=== PATIENT | male | born 1950 | race Caucasian/White ===

== ENCOUNTER 2017-11-21 08:22 | Day surgery (SDC) | payer OTHER ==
[2017-11-08 10:55] VITALS: BMI 27.0
--- NOTE | 2017-11-08 11:31 | PAT Medication Instructions ---
Service Date Nov 08, 2017. Current Home Medication List Aspirin (Aspirin Ec), 81 MG PO QPM Ketoconazole (Topical) (Ketoconazole), 1 APPLN TOP QD PRN for skin irritation Lisinopril (Zestril), 20 MG PO QPM Nortriptyline (Pamelor), 25 MG PO QPM Tamsulosin Hcl (Flomax), 0.4 MG PO QPM Medication Instructions For Your Scheduled Surgery - Hold the following medications 10 days prior to surgery (per your surgeon's instructions): Aspirin (Aspirin Ec), 81 MG PO QPM - Hold the following medications 24 hours prior to surgery: Ketoconazole (Topical) (Ketoconazole), 1 APPLN TOP QD PRN for skin irritation Lisinopril (Zestril), 20 MG PO QPM - Take the following medications as scheduled the night before surgery: Nortriptyline (Pamelor), 25 MG PO QPM Tamsulosin Hcl (Flomax), 0.4 MG PO QPM NOTHING TO EAT OR DRINK AFTER MIDNIGHT* If you have any questions please call us at [phone] or [phone] or [phone]
--- NOTE | 2017-11-08 12:16 | DIAGNOSTIC IMAGING REPORT ---
CHEST 2 VIEWS ROUTINE HISTORY: Preop. COMPARISON: None. FINDINGS: The lungs are clear. Pectus excavatum deformity. Mild emphysema. No pleural effusions. No pneumothorax. The heart is normal in size. IMPRESSION: No acute process. Electronically signed by: Romaine Forte M.D. 11/08/2017 12:15 PM Dictated Date/Time: 11/08/2017 12:13 PM
[2017-11-08 12:43] LABS: BASO % 0.6 %; BASO ABS # 0.08 K/uL (0-0.2); EOS % 2.8 %; EOS ABS # 0.37 K/uL (0-0.5); HEMATOCRIT 47.4 % (42-52); HEMOGLOBIN 16.6 g/dL (14.0-18.0); IG# 0.17 K/uL (0.00-0.02); LYMPH % 8.2 %; LYMPH ABS # 1.08 K/uL (1.2-3.4); MEAN CELL VOLUME 88.1 fL (80-100); MEAN CORPUSCULAR HEMOGLOBIN 30.9 pg (25-34); MEAN PLATELET VOLUME 10.3 fL (7.4-10.4); MONO % 9.3 %; MONO ABS # 1.23 K/uL (0.11-0.59); NEUT % 77.8 %; NEUT ABS # 10.29 K/uL (1.4-6.5); PLATELET COUNT 307 K/uL (130-400); RED CELL DISTRIBUTION WIDTH SD 47.9 fL (36.4-46.3); WHITE BLOOD COUNT 13.22 K/uL (4.8-10.8)
[2017-11-08 12:51] LABS: CALCIUM 9.5 mg/dl (8.5-10.1); CREATININE 1.16 mg/dl (0.60-1.40); POTASSIUM 4.6 mmol/L (3.5-5.1)
[~2017-11-21] VITALS: Ht 188 cm; Wt 96.7 kg
[~2017-11-21 08:22] MED LIST: ALPR0.5T PO; ASPI81TA28 PO; CEPH-571 PO; CIPROFLOXACIN / D5W 400 MG IV SCH; KETO2SHA TOP; LACTATED RINGER'S 1000ML 1,000 ML IV SCH; LISI-725 PO; NORT25CA PO; PHEN-775 PO; TAMS0.4C38 PO
[2017-11-21 08:58] VITALS: BP_SYST 95; PULSE 106; TEMP 36.6; O2SAT 95; Ht 188 cm; Wt 96.7 kg
[2017-11-21] MEDS ORDERED: FENTANYL CITRATE INJ 50 MCG/1 ML 2 ML VIAL IV PRN (09:15)
[2017-11-21] MEDS ORDERED: ONDANSETRON INJ 2 MG/ML 2 ML VIAL IV PRN (09:15)
[2017-11-21] MEDS ORDERED: ATROPINE SULFATE 0.1 MG/ML 5ML SYR IV PRN (09:15)
[2017-11-21] MEDS ORDERED: EpHEDrine SULFATE INJ 50 MG/ML AMP IV PRN (09:15)
--- NOTE | 2017-11-21 10:37 | History & Physical Bridge Note ---
H&P Re-Evaluation Bridge Note: I have examined the patient, reviewed the History & Physical and in the interval since the performance of the History & Physical I have noted the following changes of clinical significance: No changes noted
[2017-11-21] MEDS ORDERED: PROPOFOL IV EMULSION 10 MG/ML 20 ML VIAL IV ONE ×2 (10:52→11:14)
[2017-11-21] MEDS ORDERED: FENTANYL CITRATE INJ 50 MCG/1 ML 2 ML VIAL ONE (10:52)
[2017-11-21] MEDS ORDERED: Cysto-Conray II 17.2% 250ML BOTTLE ONE (10:52)
[2017-11-21] MEDS ORDERED: MIDAZOLAM HCL 1 MG/ML 2ML VIAL ONE ×2 (10:52→11:04)
[2017-11-21] MEDS ORDERED: CIPR1TAB10 PO (11:09)
--- NOTE | 2017-11-21 11:11 | Discharge Instructions ---
Discharge Instructions Date of Service Nov 21, 2017. Admission Reason for Admission: Benign Prostatic Hyperplasia with Urinary Obstruct Discharge Discharge Diagnosis / Problem: Gross Hematuria Discharge Goals Goal(s): Decrease discomfort, Improve function Activity Recommendations Activity Limitations: resume your previous activity Lifting Limitations: gradually increase as tolerated Exercise/Sports Limitations: gradually increase as tolerated . Instructions / Follow-Up Instructions / Follow-Up May have blood in urine. May have issues with burning or pelvic pain. Call if fevers or chills. Current Hospital Diet Patient's current hospital diet: Discharge Diet Recommended Diet: Regular Diet Procedures Procedures Performed: Cystoscopy and bilateral Retrograde. Pending Studies Studies pending at discharge: no Medical Emergencies . Who to Call and When: Medical Emergencies: If at any time you feel your situation is an emergency, please call 911 immediately. . Non-Emergent Contact Non-Emergency issues call your: Primary Care Provider, Urologist Call Non-Emergent contact if: you have a fever, temperature is above 101, temperature is above 101.5, your pain is not controlled, your pain is worsening . . "Provider Documentation" section prepared by Taye Mitchell. .
[2017-11-21] MEDS ORDERED: OXYCODONE/ACETAMINOPHEN 7.5-325 TAB PO PRN (11:15)
--- NOTE | 2017-11-21 11:31 | [facility] Operative Report ---
Operative Report Operative Date Nov 21, 2017. Pre-Operative Diagnosis Gross Hematuria. Post-Operative Diagnosis Same Procedure(s) Performed Cystoscopy with Retrograde Pyelogram, bilateral Surgeon Mitchell Estimated Blood Loss Minimal Findings Bilateral ureters clear. Large prostate with tiny bladder stones Specimens None Drains None Anesthesia Type General Complication(s) none Disposition Recovery Room / PACU Indications Gross hematuria with renal issues. Here for cystoscopy and bilateral retrograde pyelogram. Description of Procedure Patient was consented and brought back to the operating room. Patient was placed under anesthesia in the supine position and moved to the dorsal lithotomy position. Patient was prepped and draped in the regular sterile fashion. A time out was completed. A 30degree Cystoscope was placed into the bladder and the entire bladder was examined. The UO's were identified. Each UO was cannulized with a catheter and a retrograde pyelogram was completed. No filling defects or other issues were noted in either ureter or collecting system. The entire bladder was completely examined. No masses or lesions. The 70 degree scope was then used to once again visualize the bladder. Multiple small stones were noted in the base of the bladder with some sediment. The prostate was noted to be enlarged with varicosity. The bladder was emptied. The scope was removed. The patient was cleaned, aroused from anesthesia, and transferred to the pacu in stable condition having tolerated the procedure well with no complications. I was present and participated in all aspects of the procedure. The patient will be monitored in the PACU until transferred. I attest to the content of the Intraoperative Record and any orders documented therein. Any exceptions are noted below.
[2017-11-21] MEDS ORDERED: FINA5TAB4 PO (11:33)
--- NOTE | 2017-11-21 11:44 | DIAGNOSTIC IMAGING REPORT ---
INTRAOPERATIVE RADIOGRAPHS CLINICAL HISTORY: Bilateral retrograde ureterogram and ureteral stent placement. Fluoroscopy time: 28 seconds. FINDINGS: 4 spot fluoroscopic images of the upper abdomen from a bilateral retrograde ureterogram are presented. There is fullness of the right renal collecting system. There is no left-sided hydronephrosis identified. IMPRESSION: Intraoperative images from bilateral retrograde ureterograms as above. See operative report for detailed findings. Electronically signed by: Elie Jhaveri M.D. 11/21/2017 11:43 AM Dictated Date/Time: 11/21/2017 11:41 AM
[2017-11-21 12:00] VITALS: BP 140/89; PULSE 102; TEMP 36.3; O2SAT 91
[2017-11-21 12:30] VITALS: BP 133/95; PULSE 105; O2SAT 94
--- NOTE | 2017-11-21 12:56 | Anesthesiology Progress Note ---
Anesthesia Post Op Note Date & Time Nov 21, 2017 at 12:56 Vital Signs Pain Intensity: 0 Vital Signs Past 12 Hours Date Time Temp Pulse Resp B/P (MAP) Pulse Ox O2 Delivery O2 Flow Rate FiO2 11/21/17 12:30 105 20 133/95 94 Room Air 0 Oxymask 11/21/17 12:00 36.3 102 16 140/89 91 Room Air 0 Oxymask 11/21/17 11:55 36.3 102 16 132/84 94 11/21/17 11:45 107 18 125/83 95 Oxymask 5 11/21/17 11:36 36.3 107 20 112/76 95 Oxymask 5 11/21/17 08:58 36.6 106 18 95/ (31) 95 Room Air Notes Mental Status: alert / awake / arousable, participated in evaluation Pt Amnestic to Procedure: Yes Nausea / Vomiting: adequately controlled Pain: adequately controlled Airway Patency, RR, SpO2: stable & adequate BP & HR: stable & adequate Hydration State: stable & adequate Anesthetic Complications: no major complications apparent
[2017-11-21 13:00] VITALS: BP 141/98; PULSE 101; O2SAT 94
== END 2017-11-21 13:15 | disposition home or self-care (01) ==
LOC: C.ACU 08:22
PROVIDERS: ATTEND Urology
DX: N40.1 Benign prostatic hyperplasia with lower urinary tract symptoms (principal); N13.8 Other obstructive and reflux uropathy; I10 Essential (primary) hypertension; F17.200 Nicotine dependence, unspecified, uncomplicated; Z87.442 Personal history of urinary calculi; Z88.0 Allergy status to penicillin; Z90.49 Acquired absence of other specified parts of digestive tract; Z90.79 Acquired absence of other genital organ(s); Z79.82 Long term (current) use of aspirin

== ENCOUNTER 2017-11-28 20:03 | Emergency (ER) | payer OTHER ==
[~2017-11-28] VITALS: Ht 188 cm; Wt 95.0 kg
[~2017-11-28 20:03] MED LIST changes: -CEPH-571 PO; -CIPROFLOXACIN / D5W 400 MG IV SCH; +FINA5TAB4 PO; -LACTATED RINGER'S 1000ML 1,000 ML IV SCH
[2017-11-28 20:06] VITALS: Ht 188 cm; Wt 95.0 kg
[2017-11-28 21:06] LABS: BASO % 0.2 %; BASO ABS # 0.02 K/uL (0-0.2); EOS % 1.2 %; EOS ABS # 0.15 K/uL (0-0.5); HEMATOCRIT 47.5 % (42-52); HEMOGLOBIN 16.9 g/dL (14.0-18.0); IG# 0.06 K/uL (0.00-0.02); LYMPH % 10.6 %; LYMPH ABS # 1.28 K/uL (1.2-3.4); MEAN CELL VOLUME 86.1 fL (80-100); MEAN CORPUSCULAR HEMOGLOBIN 30.6 pg (25-34); MEAN CORPUSCULAR HGB CONC 35.6 g/dl (32-36); MEAN PLATELET VOLUME 10.6 fL (7.4-10.4); MONO ABS # 0.85 K/uL (0.11-0.59); NEUT % 80.5 %; PLATELET COUNT 387 K/uL (130-400); RED CELL DISTRIBUTION WIDTH CV 14.2 % (11.5-14.5); RED CELL DISTRIBUTION WIDTH SD 44.7 fL (36.4-46.3); WHITE BLOOD COUNT 12.06 K/uL (4.8-10.8)
--- NOTE | 2017-11-28 21:10 | DIAGNOSTIC IMAGING REPORT ---
CHEST ONE VIEW PORTABLE HISTORY: Evaluate Fever/Sepsis COMPARISON: Chest 11/08/2017. FINDINGS: The lungs remain clear. The heart is normal in size. No pleural effusions. No pneumothorax. Chest wall deformity is unchanged. Mild emphysema. IMPRESSION: No significant change compared to the prior study. No acute process. Electronically signed by: Romaine Forte M.D. 11/28/2017 9:08 PM Dictated Date/Time: 11/28/2017 9:07 PM
[2017-11-28 21:16] LABS: PTT PATIENT 32.6 SECONDS (21.0-31.0)
[2017-11-28 21:23] LABS: ALBUMIN 3.9 gm/dl (3.4-5.0); ALT/SGPT 19 U/L (12-78); BLOOD UREA NITROGEN 16 mg/dl (7-18); CALCIUM 9.2 mg/dl (8.5-10.1); CARBON DIOXIDE 25 mmol/L (21-32); CREATININE 1.13 mg/dl (0.60-1.40); GLUCOSE 138 mg/dl (70-99); LIPASE 221 U/L (73-393); SODIUM 137 mmol/L (136-145)
[2017-11-28 21:28] LABS: ALKALINE PHOSPHATASE 93 U/L (45-117); AST/SGOT 16 U/L (15-37); CKMB 1.4 ng/ml (0.5-3.6); TOTAL PROTEIN 7.3 gm/dl (6.4-8.2)
[2017-11-28 23:08] VITALS: TEMP 36.6
--- NOTE | 2017-11-29 01:09 | EMERGENCY ROOM VISIT NOTE ---
History Report prepared by Elysia: Sanjay Reyes Under the Supervision of: Dr. Junior Crawley D.O. First contact with patient: 20:13 Chief Complaint: MENTAL HEALTH EVALUATION Stated Complaint: MED ADJUSTMENT- ANXIETY, DEPRESSION History of Present Illness The patient is a 67 year old male who presents to the Emergency Room with complaints of worsening anxiety beginning several days ago. The patient states that he has been having anxiety attacks for the last several months. The patient is accompanied by his who states that around a month ago the patient was started on Xanax for his anxiety. She states that the patient has not been taking his pill regularly since two doses a day has been making the patient dizzy, sleepy, and agitated. The patient reports that his anxiety has worsened over the last couple of days. The patient states that he has been having trouble sleeping, has had a lack of appetite, and has not drinking. His reports that he has been eating three meals a day but reports he has not been eating enough. The patient states that he has had suicidal ideations lately , which he believes is because "I just don't feel good". He also states he has been depressed lately because his and father 9 years ago. He reports his plan would be to kill himself with his gun, which he does own. His reports that she is worried because the patient has been telling his family and friends that he loves the more frequently than usual lately. She states that the patient woke up this morning at 0645 complaining of chest tightness and shortness of breath. His reports that she called EMS who evaluated the patient. She states that EMS told the patient he was having an anxiety attack and convinced the patient to take his Xanax. The patient's states that after taking the medication, he slept for a couple of hours. She states that the patient woke up and was still experiencing anxiety and tightness in his chest. His reports he also began to experience tingling in his fingers. She states that she called his doctor at [facility] who told her to come to the hospital. His reports that she is unsure if the patient's recent medical history has been contributing to the patient's anxiety. She reports that within the last three months, the patient has been diagnosed with multiple infections and prostate problems. She states the patient has been taking multiple antibiotics and pills for his problems and is unsure if the medication is also causing problems. The patient denies vomiting and abdominal pain. Source of History: patient, spouse/significant other Onset: several days ago Position: other (global) Quality: other (anxiety) Timing: worsening Associated Symptoms: + chest pain, + SOB, No vomiting, No abdominal pain Note: Associated symptoms: suicidal ideations, agitation, lack of appetite, decreased fluid intake, lack of sleep Review of Systems See HPI for pertinent positives & negatives. A total of 10 systems reviewed and were otherwise negative. Past Medical & Surgical Medical Problems: (1) Anxiety Surgical Problems: (1) H/O cystoscopy Family History Patient reports no known family medical history. Social History Smoking Status: Former Smoker Marital Status: Housing Status: lives with significant other Occupation Status: retired Current/Historical Medications Scheduled Aspirin (Aspirin Ec), 81 MG PO QPM Finasteride (Proscar), 1 TAB PO DAILY Lisinopril (Zestril), 20 MG PO QPM Nortriptyline (Pamelor), 25 MG PO QPM Phenazopyridine Hcl (Pyridium), 200 MG PO TID Tamsulosin Hcl (Flomax), 0.4 MG PO QPM Scheduled PRN Alprazolam (Xanax), 1 TAB PO BID PRN for Anxiety Ketoconazole (Topical) (Ketoconazole), 1 APPLN TOP QD PRN for skin irritation Allergies Coded Allergies: Penicillins (Verified Allergy, Unknown, distorted face, 11/28/17) Lorazepam (Verified Adverse Reaction, Unknown, gets mean and loss of appetitie, 11/28/17) Physical Exam Vital Signs Date Time Temp Pulse Resp B/P (MAP) Pulse Ox O2 Delivery O2 Flow Rate FiO2 11/28/17 23:08 36.6 94 18 140/91 95 Room Air 11/28/17 20:06 36.4 104 18 149/97 96 Room Air Physical Exam CONSTITUTIONAL/VITAL SIGNS: Reviewed / noted above. GENERAL: Non-toxic in appearance. INTEGUMENTARY: Warm, dry, and [place]. HEAD: Normocephalic. EYES: without scleral icterus or trauma. ENT/OROPHARYNX: clear and moist. LYMPHADENOPATHY/NECK: Is supple without lymphadenopathy or meningismus. RESPIRATORY: Lungs clear and equal. CARDIOVASCULAR: Regular rate and rhythm. GI/ABDOMEN: Soft and nontender. No organomegaly or pulsatile mass. No rebound or guarding. Normal bowel sounds. EXTREMITIES: Warm and well perfused. BACK: No CVA tenderness. NEUROLOGICAL: Intact without focal deficits. PSYCHIATRIC: normal affect. Depressed. Has suicidal ideations. MUSCULOSKELETAL: Normally developed with good muscle tone. Medical Decision & Procedures ER Provider Diagnostic Interpretation: X ray results and stated below per my interpretation and radiology interpretation. CHEST ONE VIEW PORTABLE HISTORY: Evaluate Fever/Sepsis COMPARISON: Chest 11/08/2017. FINDINGS: The lungs remain clear. The heart is normal in size. No pleural effusions. No pneumothorax. Chest wall deformity is unchanged. Mild emphysema. IMPRESSION: No significant change compared to the prior study. No acute process. Electronically signed by: Romaine Forte M.D. 11/28/2017 9:08 PM Dictated Date/Time: 11/28/2017 9:07 PM Laboratory Results 11/28/17 20:47 Red Blood Count 5.52, Mean Corpuscular Volume 86.1, Mean Corpuscular Hemoglobin 30.6, Mean Corpuscular Hemoglobin Concent 35.6, Mean Platelet Volume 10.6, Neutrophils (%) (Auto) 80.5, Lymphocytes (%) (Auto) 10.6, Monocytes (%) (Auto) 7.0, Eosinophils (%) (Auto) 1.2, Basophils (%) (Auto) 0.2, Neutrophils # (Auto) 9.70, Lymphocytes # (Auto) 1.28, Monocytes # (Auto) 0.85, Eosinophils # (Auto) 0.15, Basophils # (Auto) 0.02 11/28/17 20:47 Test 11/28/17 20:25 11/28/17 20:47 Urine Opiates Screen NEG (NEG) Urine Methadone, Qualitative NEG (NEG) Urine Barbiturates NEG (NEG) Urine Phencyclidine (PCP) Level NEG (NEG) Ur Amphetamine/Methamphetamine NEG (NEG) MDMA (Ecstasy) Screen NEG (NEG) Urine Benzodiazepines Screen NEG (NEG) Urine Cocaine Metabolite NEG (NEG) Urine Marijuana (THC) NEG (NEG) White Blood Count 12.06 K/uL (4.8-10.8) Red Blood Count 5.52 M/uL (4.7-6.1) Hemoglobin 16.9 g/dL (14.0-18.0) Hematocrit 47.5 % (42-52) Mean Corpuscular Volume 86.1 fL (80-100) Mean Corpuscular Hemoglobin 30.6 pg (25-34) Mean Corpuscular Hemoglobin Concent 35.6 g/dl (32-36) Platelet Count 387 K/uL (130-400) Mean Platelet Volume 10.6 fL (7.4-10.4) Neutrophils (%) (Auto) 80.5 % Lymphocytes (%) (Auto) 10.6 % Monocytes (%) (Auto) 7.0 % Eosinophils (%) (Auto) 1.2 % Basophils (%) (Auto) 0.2 % Neutrophils # (Auto) 9.70 K/uL (1.4-6.5) Lymphocytes # (Auto) 1.28 K/uL (1.2-3.4) Monocytes # (Auto) 0.85 K/uL (0.11-0.59) Eosinophils # (Auto) 0.15 K/uL (0-0.5) Basophils # (Auto) 0.02 K/uL (0-0.2) RDW Standard Deviation 44.7 fL (36.4-46.3) RDW Coefficient of Variation 14.2 % (11.5-14.5) Immature Granulocyte % (Auto) 0.5 % Immature Granulocyte # (Auto) 0.06 K/uL (0.00-0.02) Prothrombin Time 10.8 SECONDS (9.0-12.0) Prothromb Time International Ratio 1.0 (0.9-1.1) Activated Partial Thromboplast Time 32.6 SECONDS (21.0-31.0) Partial Thromboplastin Ratio 1.3 Anion Gap 9.0 mmol/L (3-11) Est Creatinine Clear Calc Drug Dose 72.8 ml/min Estimated GFR () 77.0 Estimated GFR (Non- 66.4 BUN/Creatinine Ratio 14.3 (10-20) Calcium Level 9.2 mg/dl (8.5-10.1) Total Bilirubin 0.6 mg/dl (0.2-1) Direct Bilirubin 0.2 mg/dl (0-0.2) Aspartate Amino Transf (AST/SGOT) 16 U/L (15-37) Alanine Aminotransferase (ALT/SGPT) 19 U/L (12-78) Alkaline Phosphatase 93 U/L (45-117) Total Creatine Kinase 41 U/L (39-308) Creatine Kinase MB 1.4 ng/ml (0.5-3.6) Creatine Kinase MB Ratio 3.4 (0-3.0) Troponin I < 0.015 ng/ml (0-0.045) Total Protein 7.3 gm/dl (6.4-8.2) Albumin 3.9 gm/dl (3.4-5.0) Lipase 221 U/L (73-393) Salicylates Level < 1.7 mg/dl (2.8-20) Acetaminophen Level < 2 ug/ml (10-30) Ethyl Alcohol mg/dL < 3.0 mg/dl (0-3) Laboratory results as stated above per my review. ECG Per My Interpretation Indication: SOB/dyspnea Rate (beats per minute): 106 Rhythm: sinus rhythm Findings: no acute ischemic change, no ectopy, other (No ST elevation) ED Course 2027: Previous medical records were reviewed. The patient was evaluated in room A06. A complete history and physical examination was performed. 0154: I reevaluated the patient and he is still waiting on placement for referrals. 0230: The patient was signed out to Dr. Pendleton at the change of shift. Medical Decision differential includes toxic ingestions, self-mutilation, suicidal ideation, suicide attempt, depression. This is a 67-year-old male who presents to the ED with a chief complaint of anxiety. The patient states that he had what he felt was a panic attack this morning. He reports that he awoke with some chest pain and shortness of breath. The significant other feels that the patient has depression and anxiety. She states that he has not been sleeping well, eating well and his been pacing around a lot. He is prescribed Xanax for his symptoms but this does not seem to help. He had some suicidal thoughts today and was thinking about using his 22 rifle that is at his house. He has been currently been staying at his girlfriend's house. The patient's physical exam was unremarkable. He is currently not experiencing any chest discomfort or shortness of breath. He has not had exertional symptoms. His physical exam was normal. An EKG shows a sinus tach at a rate of 106. No acute injury or ectopy. Chest x-ray was negative for acute disease. CBC was unremarkable. Chemistry panel was unremarkable. Cardiac enzymes are normal. Tox screen is negative, alcohol is negative. The patient was felt to be medically cleared for mental health evaluation and/or placement. The patient is voluntary and is willing to stay. Bed placement is underway at this time. Signed out to Dr. pendleton at 2 AM. Medication Reconcilliation Current Medication List: was personally reviewed by me Blood Pressure Screening Patient's blood pressure: Elevated blood pressure Blood pressure disposition: Referred to PCP Impression Primary Impression: Depression Additional Impression: Suicidal ideation Scribe Attestation The scribe's documentation has been prepared under my direction and personally reviewed by me in its entirety. I confirm that the note above accurately reflects all work, treatment, procedures, and medical decision making performed by me. Departure Information Dispostion Still a Patient Referrals Jorge Parry D.O. (PCP) Patient Instructions My [facility] Problem Qualifiers
--- NOTE | 2017-11-29 04:27 | EMERGENCY ROOM VISIT NOTE ---
ED Visit Note First contact with patient: 02:45 Pt seen by vince brar and 201 signed. Pt to be transferred to [place] for depression/SI.
[2017-11-29 04:42] VITALS: BP 137/88; PULSE 90; O2SAT 97
== END 2017-11-29 04:42 ==
LOC: C.EDB 20:04 → C.EDA 11-29 04:42
DX: F32.9 Major depressive disorder, single episode, unspecified (principal); R45.851 Suicidal ideations; F41.9 Anxiety disorder, unspecified; Z87.891 Personal history of nicotine dependence; Z79.82 Long term (current) use of aspirin; Z88.0 Allergy status to penicillin; Z88.8 Allergy status to other drugs, medicaments and biological substances

== ENCOUNTER 2020-02-04 07:08 | Observation (INO) ==
[2020-01-31 13:05] LABS: Appearance Urine Clear (Clear); Bilirubin Urine Negative (Negative); Blood Urine Negative (Negative); Color Urine Dark Yellow; Glucose Urine UA Negative (Negative); Ketones Urine Negative (Negative); Leukocyte Esterase Urine Negative (Negative); Nitrite Urine Negative (Negative); Protein Urine Negative (Negative); Specific Gravity Urine 1.027 (1.000-1.030); Urobilinogen Urine Negative (Negative)
[2020-01-31 13:08] LABS: Basophils # (auto) 0.03 K/uL (0-0.2); Basophils % (auto) 0.3 %; Eosinophils # (auto) 0.14 K/uL (0-0.5); Eosinophils % (auto) 1.5 %; Hematocrit (blood only) 49.9 % (42-52); Hemoglobin 16.7 g/dL (14.0-18.0); Immature Granulocytes # (auto) 0.06 K/uL (0.00-0.02); Immature Granulocytes % (auto) 0.6 %; Lymphocytes # (auto) 1.22 K/uL (1.2-3.4); Lymphocytes % (auto) 12.9 %; Mean Corpuscular Hemoglobin 30.1 pg (25-34); Mean Corpuscular Hgb Conc 33.5 g/dL (32-36); Mean Corpuscular Volume 89.9 fL (80-100); Mean Platelet Volume 10.7 fL (7.4-10.4); Monocytes # (auto) 0.69 K/uL (0.11-0.59); Monocytes % (auto) 7.3 %; Neutrophils # (auto) 7.33 K/uL (1.4-6.5); Neutrophils % (auto) 77.4 %; Platelet Count 341 K/uL (130-400); RDW Coefficient of Variation 13.9 % (11.5-14.5); RDW Standard Deviation 45.7 fL (36.4-46.3); Red Blood Count 5.55 M/uL (4.7-6.1); White Blood Count 9.47 K/uL (4.8-10.8)
[2020-01-31 13:51] LABS: BUN Creatinine Ratio 18.8 (10-20); Calcium 9.3 mg/dl (8.5-10.1); Est GFR (African American) 69.9; Est GFR (Non-African American) 60.3; Potassium 4.2 mmol/L (3.5-5.1)
--- NOTE | 2020-02-03 08:40 | Anesthesiology Consultation ---
Date of Service February 03, 2020 Assessment & Plan (1) Encounter for pre-operative examination: COVID Status: As of 01/28 nurse assessment, patient denies travel to endemic area, known exposure/sick contacts, or symptoms of COVID19. He was tested on 01/30 at [facility] and resulted NEGATIVE. Chart Review Chart Review: Acceptable Risk for Surgery and Patient NOT seen in Pre Admission Testing History Surgery Operation Date: 02/04/20 08:15 Proposed Procedures p Transurethral Resection Prostate - Taye Mitchell DO Height/Weight Height: 6 ft 2 in Weight: 90.718 kg Allergies Allergy/AdvReac Type Severity Reaction Status Date / Time Penicillins Allergy Intermediate facial Verified 02/04/20 07:36 drooping lorazepam Allergy Unknown gets mean Verified 02/04/20 07:36 and loss of appetitie Medications Home Medications Medication Instructions Recorded Confirmed Last Taken finasteride 5 mg tablet 5 mg PO HS 05/28/19 02/04/20 02/03/20 23:00 ketoconazole 2 % topical cream 1 applic TOPICAL DAILY gm 05/28/19 02/04/20 Unknown lisinopril 20 mg tablet 20 mg PO HS 05/28/19 02/04/20 02/03/20 23:00 nortriptyline 25 mg capsule 25 mg PO HS 05/28/19 01/29/20 02/03/20 23:00 tamsulosin 0.4 mg capsule 0.4 mg PO HS 05/28/19 01/29/20 02/03/20 23:00 Active Medications Generic Name Dose Route Start Last Admin Trade Name Freq PRN Reason Stop Dose Admin Lactated Ringer's 1,000 mls @ 15 mls/hr 02/04/20 06:00 02/04/20 07:57 Lr IV 02/05/20 05:59 15 mls/hr .Q24H CIRO Administration Past Medical History Medical History Anxiety and depression Benign enlargement of prostate Chronic kidney disease Gout Hypertension Nephrolithiasis Osteoarthritis Pectus excavatum s/p chest recontstruction Past Family History Family History Father Heart disease Grandmother (Paternal) Family history of diabetes mellitus Past Surgical History Surgical History History of colonoscopy History of esophagogastroduodenoscopy (EGD) History of thoracic surgery chest reconstruction for pectus excavatum History of tooth extraction S/P appendectomy S/P orchiectomy RT Past Anesthesia History No Hx of Anesthesia Complications History of PONV No Hx of PONV and No Hx of Motion Sickness Social History Smoking Status: Current every day smoker tobacco type: cigarettes Smoking cigarettes per day: 3-4 cig per day Do You Dip or Chew Tobacco: No Hx Alcohol Use: No Hx Substance Use: No substance use type: does not use Physical Exam Vital Signs Last Vital Signs Temp 36.6 C 02/04/20 07:38 Pulse 91 H 02/04/20 07:38 Resp 18 02/04/20 07:38 BP 167/104 H 02/04/20 07:38 Pulse Ox 98 02/04/20 07:38 Testing Laboratory Results 01/31/20 11:30 01/31/20 11:30 Urine Color Dark Yellow 01/31/20 11:30 Urine Appearance Clear (Clear) 01/31/20 11:30 Urine pH 5.0 (4.5-7.5) 01/31/20 11:30 Ur Specific [place] 1.027 (1.000-1.030) 01/31/20 11:30 Urine Protein Negative (Negative) 01/31/20 11:30 Urine Glucose (UA) Negative (Negative) 01/31/20 11:30 Urine Ketones Negative (Negative) 01/31/20 11:30 Urine Nitrite Negative (Negative) 01/31/20 11:30 Ur Leukocyte Esterase Negative (Negative) 01/31/20 11:30 01/31/20 11:30 Urine Culture - Final Urine,Clean Catch Three types of organisms present, all low counts probable skin ashlee. No further identifications or sensitivities to follow. Electrocardiogram Date: 11/13/19 Findings: + NSR @ (93bpm) and + no change from (11/28/17) Chest X-Ray Date: 11/13/19 Findings: + NAD Pectus deformity noted.
[~2020-02-04 07:08] MED LIST changes: -ALPR0.5T PO; -ASPI81TA28 PO; +CEFAZOLIN 2000MG 2,000 MG/15 ML SYR IV SCH; -FINA5TAB4 PO; +GENTAMICIN SULFATE 80 MG in DEXTROSE 5% 100 ML IV SCH; -KETO2SHA TOP; +LACTATED RINGER'S 1,000 ML IV SCH; +LIDOCAINE HCL 2% 2 ML VIAL/AMP(20MG/ML) INFIL ONE; -LISI-725 PO; +MIDAZOLAM HCL 1 MG/ML 2ML VIAL ONE; -NORT25CA PO; +ONDANSETRON INJ 2 MG/ML 2 ML VIAL ONE; -PHEN-775 PO; +PHENYLEPHRINE 100MCG/ML 5ML SYR ONE; +PROPOFOL IV EMULSION 10 MG/ML 20 ML VIAL IV ONE; -TAMS0.4C38 PO; +ePHEDrine sulfate 50 MG/ML SYR ONE; +fentaNYL citrate 100 MCG/2 ML VIAL ONE
--- NOTE | 2020-02-04 08:31 | History & Physical Bridge Note ---
Date of Service February 04, 2020 History & Physical Bridge Note I have examined the patient, reviewed the History & Physical and in the interval since the performance of the History & Physical I have noted the following changes of clinical significance: no changes noted
[2020-02-04] MEDS ORDERED: ONDANSETRON INJ 2 MG/ML 2 ML VIAL IV PRN (08:49)
[2020-02-04] MEDS ORDERED: BELLADONNA/OPIUM SUPP 60 MG SUPP PR PRN (08:49)
[2020-02-04] MEDS ORDERED: ATROPINE SULFATE 0.1 MG/ML 10ML SYR IV PRN (08:49)
[2020-02-04] MEDS ORDERED: LABETALOL HCL IV 5 MG/ML 20ML IV PRN (08:49)
[2020-02-04] MEDS ORDERED: KETOROLAC 30 MG/ML VIAL IV PRN (08:49)
[2020-02-04] MEDS ORDERED: OXYCODONE HCL IR 5 MG TAB (IMMEDIATE RELEASE) PO PRN (08:49)
[2020-02-04] MEDS: CEFAZOLIN 2000MG 2,000 MG/15 ML SYR IV SCH ×3 (09:01→16:44)
[2020-02-04] MEDS ORDERED: BELLADONNA/OPIUM SUPP 60 MG SUPP PR ONE (09:20)
[2020-02-04] MEDS: BELLADONNA/OPIUM SUPP 60 MG SUPP PR SCH ×2 (09:24→11:50)
[2020-02-04] MEDS ORDERED: MoRPHine SULFATE 2 MG/ML CARP IV PRN (09:52)
--- NOTE | 2020-02-04 10:05 | Operative Report ---
PG Post Operative Report Pre & Post Diagnosis Operation Date: 02/04/20 08:15 Pre-Op Diagnosis: Benign Prostatic Hyperplasia, Gross Hematuria Post-Op Diagnosis: Benign Prostatic Hyperplasia, Gross Hematuria I identified the patient and participated in the time-out.: Yes Procedure Operation Date: 02/04/20 08:15 Actual Procedures p Transurethral Resection Prostate with removal of bladder and prostatic urethral stones and unroofing of prostatic abscess/cysts - Taye Mitchell, Surgeon Taye Mitchell, II, DO Server Systems Administrator None Estimated Blood Loss 5 Findings Consistent with Post-Op Diagnosis Moderately enlarged Prostate with obstruction and small bladder stones. Large cystic/abscess on right lateral lobe. Specimens Prostate adenoma. Drains 22Fr Catheter [address] Anesthesia Type General Complications none Disposition Disposition: Recovery Room Indications Patient with obstruction due to prostate enlargement. Risks and benefits discussed at length. Description of Procedure Patient was consented and brought back to the operating room. Patient was placed under anesthesia in the supine position and moved to the dorsal lithotomy position. Patient was prepped and draped in the regular sterile fashion. A time out was completed. A 30degree Cystoscope was placed into the bladder and the entire bladder was examined. The UO's were identified as well as the bladder neck, trigone, dome, and the other important landmarks. The prostatic urethra and large lobes/adenoma was assessed and the veru and bladder neck identified and area/size was assessed. Small bladder stones were destroyed and removed. Approx 5 stones around 2-3 mm were removed. The resection scope was placed and the fine bipolar loop was selected. Starting at the 5 and 7 o'clock positions, a channel was created from bladder neck to the veru. During resection multiple pockets of prostatic stones and purulent appearing fluid was unroofed and drained. Due to the fluid appearance, an additional antibiotic was added IV with 80mg of Gentamycin. The channel was fully created and good flow was achieved. The lateral lobes were then resected from 1 oclock to the channel and then 11 oclock to the channel. The 7 oclock position found a very large cystic pocket with large stone and milky/thick fluid. THis was fully unroofed and irrigated multiple times. Multiple stones were removed and sent with the specimen. The base of the cyst was resected and fulgurated multiple times to destroy the cavity. The entire resection bed was then assessed. Additional tissues were resected to go down to the capulse. The Reseciton bed was smoothed and all bleeding controlled. The 12 oclock position was then carefully debulked of some of the tissue. The channel was well created and no significant bleeding. The Specimen was removed and sent for analysis. The resection bed and any bleeding areas were fulgurated/cauterized and the entire area inspected. All bleeding was controlled. The bladder was inspected a final time. The bladder was emptied and irrigated. All specimen and debris was removed. The scope was removed with the bladder partially full. A catheter was placed and balloon elevated. This was easily irrigated. The patient was cleaned, aroused from anesthesia, and transferred to the pacu in stable condition having tolerated the procedure well with no complications. I was present and participated in all aspects of the procedure. The patient will be monitored in the PACU until transferred. I attest to the content of the Intraoperative Record and any orders documented therein. Any exceptions are noted below.
[2020-02-04] MEDS: fentaNYL citrate 100 MCG/2 ML VIAL IV PRN ×3 (10:38→10:48)
--- NOTE | 2020-02-04 11:08 | Anesthesiology Progress Note ---
Date of Service February 04, 2020 Anesthesia Post Procedure Vital Signs Vital Signs: Temp Pulse Pulse Resp BP Pulse Ox 02/04/20 10:55 36.8 C 84 12 144/93 H 97 02/04/20 10:45 89 15 154/102 H 94 02/04/20 10:35 89 15 156/91 H 98 02/04/20 10:25 94 H 20 163/101 H 98 02/04/20 10:15 36.1 C L 92 H 20 110/90 98 02/04/20 07:38 36.6 C 91 H 18 167/104 H 98 Pain Intensity Penis: Pain Intensity: 4 Transfer of Care Handoff Completed per policy Notes Mental Status: alert / awake / arousable Patient Amnestic to Procedure: Yes Nausea / Vomiting: adequately controlled Pain: adequately controlled Airway Patency, RR, SpO2: stable & adequate BP & HR: stable & adequate Hydration State: stable & adequate Anesthetic Complications: no major complications apparent
[2020-02-04 11:28] LABS: Basophils # (auto) 0.02 K/uL (0-0.2); Basophils % (auto) 0.2 %; Eosinophils # (auto) 0.16 K/uL (0-0.5); Eosinophils % (auto) 1.9 %; Hematocrit (blood only) 43.9 % (42-52); Hemoglobin 14.9 g/dL (14.0-18.0); Immature Granulocytes # (auto) 0.04 K/uL (0.00-0.02); Immature Granulocytes % (auto) 0.5 %; Lymphocytes # (auto) 1.04 K/uL (1.2-3.4); Lymphocytes % (auto) 12.6 %; Mean Corpuscular Hemoglobin 30.2 pg (25-34); Mean Corpuscular Hgb Conc 33.9 g/dL (32-36); Mean Corpuscular Volume 88.9 fL (80-100); Mean Platelet Volume 10.3 fL (7.4-10.4); Monocytes # (auto) 0.63 K/uL (0.11-0.59); Monocytes % (auto) 7.6 %; Neutrophils # (auto) 6.39 K/uL (1.4-6.5); Neutrophils % (auto) 77.2 %; Platelet Count 285 K/uL (130-400); RDW Coefficient of Variation 13.8 % (11.5-14.5); RDW Standard Deviation 45.2 fL (36.4-46.3); Red Blood Count 4.94 M/uL (4.7-6.1); White Blood Count 8.28 K/uL (4.8-10.8)
[2020-02-04 11:55] LABS: BUN Creatinine Ratio 20.4 (10-20); Calcium 8.7 mg/dl (8.5-10.1); Creatinine Clr Calc Pharmacy 66.6 ml/min; Est GFR (African American) 70.6; Est GFR (Non-African American) 60.9; Potassium 4.6 mmol/L (3.5-5.1)
[2020-02-04] MEDS: SODIUM CHLORIDE 0.9% 1000ML 1,000 ML IV SCH (12:37)
[2020-02-04] MEDS ORDERED: NORTRIPTYLINE HCL 25 MG CAP PO SCH (21:00)
[2020-02-04] MEDS ORDERED: TAMSULOSIN HCL 0.4 MG CAP PO SCH (21:00)
[2020-02-04] MEDS ORDERED: FINASTERIDE 5 MG TAB PO SCH (21:00)
[2020-02-04] MEDS ORDERED: lisinopriL 20 MG TAB PO SCH (21:00)
[2020-02-05] MEDS: SODIUM CHLORIDE 0.9% 1000ML 1,000 ML IV SCH ×2 (00:12→12:12)
[2020-02-05] MEDS: CEFAZOLIN 2000MG 2,000 MG/15 ML SYR IV SCH ×2 (00:12→09:23)
--- NOTE | 2020-02-05 08:32 | Anesthesiology Progress Note ---
Date of Service February 05, 2020 Anesthesia Post Procedure Vital Signs Vital Signs: Temp Pulse Pulse Resp BP Pulse Ox 02/05/20 07:34 36.7 C 93 H 16 118/76 93 02/05/20 02:28 36.7 C 91 H 16 126/77 90 02/04/20 23:02 36.6 C 93 H 18 142/81 H 95 02/04/20 19:20 36.3 C L 88 16 144/84 H 91 02/04/20 15:03 84 16 136/83 94 02/04/20 13:30 92 H 16 143/83 H 97 02/04/20 12:32 83 18 137/87 96 02/04/20 12:00 36.3 C L 85 18 142/89 H 92 02/04/20 11:25 36.3 C L 87 18 144/90 H 99 02/04/20 11:05 36.7 C 85 12 155/91 H 99 02/04/20 10:55 36.8 C 84 12 144/93 H 97 02/04/20 10:45 89 15 154/102 H 94 02/04/20 10:35 89 15 156/91 H 98 02/04/20 10:25 94 H 20 163/101 H 98 02/04/20 10:15 36.1 C L 92 H 20 110/90 98 Pain Intensity Penis: Pain Intensity: 0 Notes Mental Status: alert / awake / arousable and participated in evaluation Nausea / Vomiting: adequately controlled Pain: adequately controlled Airway Patency, RR, SpO2: stable & adequate BP & HR: stable & adequate Hydration State: stable & adequate Anesthetic Complications: no major complications apparent and Pt Satisfied with anesthetic care
--- NOTE | 2020-02-05 16:06 | Urology Progress Note ---
Date of Service February 05, 2020 Assessment & Plan (1) Gross hematuria: Postop day 1 status post TURP. Patient doing very well no major issues or concerns. Is tolerating diet. Is active. Is tolerating catheter. No major issues or problems. Plan for outpatient follow-up will be set. Patient will be started on/continued on antibiotics in the postoperative period and will be followed. Plan for follow-up. Subjective Postop day 1 status post TURP for a significant issue with gross hematuria, enlarged prostate, and subsequently found to have prostatic abscesses which were drained. Patient has been tolerating well. Has noticed some frequency and urgency with catheter in place but has been draining well without major issues. CBI is now off and patient is draining clear yellow.. Has not had severe pain in the back and flank. Does have occasional burning and irritation. No severe episodes or major changes. No new nausea or vomiting. Had tolerated anesthesia without major problems Review of Systems Review of Systems: All systems reviewed & are unremarkable except as noted in HPI & below Physical Exam Physical Exam: General: Alert in no acute distress. HEENT: Normocephalic Atraumatic. Inspection normal. Cranial Nerves 2-12 Grossly intact. Normal inspection of face. Normal inspection of neck. Psychologic: Normal affect. Respiratory: Nonlabored. No use of accessory muscles. No tachypnea or dyspnea. Cardiovascular: No tachycardia Skin: [place] and Dry. No rashes or visible lesions. Extremities/Lymphatics: No edema Abdomen: Soft Non-distended. No rebound or guarding. : Catheter in place draining clear yellow urine CBI is off. Results & Data Vital Signs (Past 12 Hours) Vital Signs Temp Pulse Resp BP Pulse Ox 02/05/20 15:16 36.6 C 84 16 150/88 H 96 02/05/20 12:00 36.8 C 86 16 147/91 H 96 02/05/20 07:34 36.7 C 93 H 16 118/76 93 PG Care Time/CCT Total # of Minutes Spent Total Time Spent with Patient: Total time spent is greater than 50% in coordination of care (as documented) at patient's floor/unit and/or counseling patient: Coding Level of Care Code 68851 Subseq Hosp Care Lvl 3 Diagnoses Gross hematuria R31.0
--- NOTE | 2020-02-05 16:07 | Discharge Summary ---
Date of Service February 05, 2020 Admission HPI Per Admitting Provider See H&P Admission Exam Per Admitting Provider See H&P Principal Diagnosis Prostate enlargement, gross hematuria Discharge Exam General: Alert in no acute distress. HEENT: Normocephalic Atraumatic. Inspection normal. Psychologic: Normal affect. Skin: [place] and Dry. No rashes or visible lesions. Abdomen: Soft Non-distended. No rebound or guarding. Discharge Data Allergies Allergy/AdvReac Type Severity Reaction Status Date / Time Penicillins Allergy Intermediate facial Verified 02/04/20 07:36 drooping lorazepam Allergy Unknown gets mean Verified 02/04/20 07:36 and loss of appetitie Procedures Performed Operation Date: 02/04/20 08:15 Actual Procedures p Transurethral Resection Prostate(Not Applicable) - Taye Mitchell DO Hospital Course (1) Gross hematuria: Postop day 1 status post TURP. Patient doing very well no major issues or concerns. Is tolerating diet. Is active. Is tolerating catheter. No major issues or problems. Plan for outpatient follow-up will be set. Patient will be started on/continued on antibiotics in the postoperative period and will be followed. Plan for follow-up. Total Time Total Time Spent Total Time Spent (In Minutes): 10 minutes Total Time Includes: Examination of the Patient, Discharge Planning, Medication Reconciliation and Communication With Other Providers Discharge Plan Discharge Items Patient Disposition: Home - Self-Care Reason For Visit: GROSS HEMATURIA Discharge Diagnosis: Same Activity: Resume your previous activity Lifting: No more than 50 pounds Non-emergency contact: Urologist Call non-emergency contact if: you have any medication questions, your symptoms worsen, your pain is not controlled, your pain is worsening, your pain is unusual for you, your pain is concerning for you, you have a fever and your temperature is above 101.5 Follow-up/Referrals: Jorge Parry [Primary Care Provider] - Diet: Regular Addtl Attending Provider Instructions: May have blood in the urine. Home with catheter. Will need catheter training. Finish antibiotics as ordered. Plan for follow-up Pending Studies at Discharge: No Stand-Alone Forms: My [employer], Smoking Cessation Medications and DC Order Prescriptions: New ciprofloxacin HCl [Cipro] 500 mg tablet 500 mg PO Q12H Qty: 14 RF: 0 oxycodone-acetaminophen [Percocet] 7.5-325 mg tablet 1 tab PO Q8H PRN (Reason: pain) Qty: 7 RF: 0 Continued finasteride 5 mg tablet 5 mg PO HS RF: 0 lisinopril 20 mg tablet 20 mg PO HS RF: 0 tamsulosin 0.4 mg capsule 0.4 mg PO HS RF: 0 nortriptyline 25 mg capsule 25 mg PO HS RF: 0 ketoconazole 2 % cream 1 applic topical DAILY RF: 0 Discharge Orders: Discharge Order (Routine); Ordered 02/05/20 Ordered By: Taye Mitchell Admission Data Admit Date/Time: 02/04/20 08:49 Attending Provider: Taye Mitchell Admit Provider: Taye Mitchell Primary Care Provider: Jorge Parry Coding Level of Care Code D/C Day Management <30 mins Diagnoses Gross hematuria R31.0
== END 2020-02-05 18:20 | disposition home or self-care (01) ==
LOC: ASU 07:08 → 3N 07:08